=== PATIENT | female | born 1930 | race Caucasian/White ===

== ENCOUNTER → 2017-09-24 | Outpatient (CLI) | payer OTHER ==
[~2017-09-24] MED LIST: ANASPAZ0.125 MG SL; CALCIUM 600 +1 EAC7 PO; KRILL OIL 1,001 EAC1 PO; LIMU; MEDROLDOSEPACK PO; PRILOSEC OTC20 MG PO; TRAMADOL 50 MG50 MG PO; TYLENOL EXTRA500 MG; UNICOMPLEX M TA1 TA1 PO; [UNRECOGNIZED DRUG - OTHER]
== END ==
LOC: M.RAD 10:56
DX: M48.56XA Collapsed vertebra, not elsewhere classified, lumbar region, initial encounter for fracture (principal); M41.86 Other forms of scoliosis, lumbar region; Z98.890 Other specified postprocedural states; Z87.311 Personal history of (healed) other pathological fracture

== ENCOUNTER → 2017-12-21 | Outpatient (CLI) | payer OTHER ==
--- NOTE | 2018-01-12 13:59 | PAINCON ---
[facility] [address] [place] [address] PAIN MANAGEMENT CONSULTATION Name: JAEML PERSAUD [id number] Admission: 12/21/17 Attend Phys: Prasanth Ruth MD Discharge: Date of : 01/[birth year] Report #: [id number] THIS REPORT FOR: //name// CC: Minna Ibanez DATE OF SERVICE: 12/21/2017 FOLLOWUP COMPLAINT: Mid low back pain and right hip pain. Some pain in the neck, more on the left than the right. FOLLOWUP HISTORY: The patient is an 87-year-old female who has been seen in the Pain Clinic in the past because of back pain. As you recall, she has undergone kyphoplasty/vertebroplasty for compression fracture. She had a fracture at the L2 area in September or September. Using tramadol caused some confusion. The patient was wondering whether she would be a candidate for an injection. Notes that the pain sometimes radiates down into her hip. Rates her pain as a 2-3 at this juncture. Her was in the process of helping her. She fell forward and bruised her right leg. The patient has a history of osteopenia. The patient has some difficulty standing. ALLERGIES: PENICILLIN AND OXYBUTYNIN. THE PATIENT FEELS THAT TRAMADOL MAY HAVE CAUSED SOME CONFUSION. CURRENT MEDICATIONS: Tylenol 500 mg b.i.d., calcium/vitamin D3 600 mg/200 mg daily, Krill oil 1000 mg, multivitamin with iron and minerals, omeprazole 20 mg daily, tramadol 50 mg q.6h. PAIN CLINIC ASSESSMENT: 1. History of osteoarthritis. The patient has significant arthritic changes in her back with kyphosis and compression fractures. 2. Height 5 feet 4 inches, weight 97 pounds, weight is 108 pounds. 3. Vital signs: Blood pressure 143/75, respiratory rate 16, room air saturation is 97%, heart rate 114, and temperature 98.4. 4. Pain intensity 10/09. 5. Fall risk. The patient has not fallen in the last 3 months. 6. Blood thinner. The patient is not on a blood thinning agent. 7. Hypertension. The patient is not taking any antihypertensive agents. 8. Opioid greater than 6 weeks. The patient has used tramadol episodically. 9. Risk assessment tool. 10. Recreational drug use. The patient denies use of recreational drugs. 11. Tobacco: The patient denies use of tobacco. 12. Alcoholic beverages does not imbibe in alcoholic beverages. PHYSICAL EXAMINATION: [place] [address] PAIN MANAGEMENT CONSULTATION Name: JAMEL PERSAUD Room: [facility]#: [id number] Admission: 12/21/17 Attend Phys: Prasanth Ruth MD Discharge: Date of : 01/[birth year] Report #: [id number] GENERAL: The patient is an 87-year-old white female. She appears her stated age. She is alert and oriented x 3. Affect is appropriate. HEENT: Normocephalic, atraumatic. Extraocular eye muscles intact. Sclerae nonicteric. Hearing within normal limits. NECK: Without adenopathy. Some decreased range of motion given her arthritic condition. LUNGS: Clear to auscultation. HEART: Somewhat tachycardic, regular. ABDOMEN: Nontender. MUSCULOSKELETAL: The patient has significant kyphosis. Upper extremity muscle strength is judged to be 4+ left and 5 right with symmetry without radicular complaints, lumbar area. The patient is kyphosis is significant enough that her right ribs about 1 cm from her iliac crest on the right side. IMPRESSION: 1. Low back pain, right hip pain, neck pain, left greater than right. 2. History of compression fractures in the L2 area in approximately September of this year, status post kyphoplasty. 3. Chronic pain. RECOMMENDATIONS: We discussed the treatment options with the patient. She seems to be somewhat sensitive to tramadol. We will have the patient take the medication more episodic prior to activity rather than on a regular basis. Hopefully, she will get more benefit from this with left symptoms. May consider hydrocodone instead of tramadol. This is a very difficult case given that the patient sensitivities. I am not sure that she is a real candidate for injections. She has a very challenging back. We will continue with conservative approach at this juncture. We would like to thank you for letting us participate in her care. We hope she continues to improve. May try a Medrol Dosepak. <ELECTRONICALLY SIGNED> By: Prasanth Ruth MD 01/12/18 [id number]. Cricket Ruth MD /eric
== END ==
LOC: M.PC 02:18
DX: M54.5 Low back pain (principal); M54.2 Cervicalgia; M25.551 Pain in right hip; G89.29 Other chronic pain

== ENCOUNTER → 2017-12-30 | Outpatient (CLI) | payer OTHER | LOC: M.ULTRA 10:30 | DX: R22.41 Localized swelling, mass and lump, right lower limb (principal) ==